=== PATIENT | male | born 1980 | race Caucasian/White ===

== ENCOUNTER 2023-01-26 21:30 | Emergency (ER) | payer MEDICAID ==
[~2023-01-26] VITALS: Ht 175.3 cm; Wt 82.6 kg
--- NOTE | 2023-01-26 22:24 | NUR ---
Called no show in lobby or outside.
[2023-01-26 23:00] VITALS: BP 151/100
== END 2023-01-27 02:26 | disposition left against medical advice (07) ==
LOC: MED 21:30
DX: J02.9 Acute pharyngitis, unspecified (principal); Z53.21 Procedure and treatment not carried out due to patient leaving prior to being seen by health care provider
CPT/HCPCS: 99281

== ENCOUNTER 2023-07-18 23:05 | Emergency (ER) | payer MEDICAID ==
[~2023-07-18] VITALS: Ht 175.3 cm; Wt 61.2 kg
[2023-07-18 23:10] VITALS: BP 120/69; PULSE 90; RESP 17; TEMP 98; O2SAT 98
[2023-07-19] MEDS ORDERED: cephALEXin 500 MG CAP PO ONE (01:15)
[2023-07-19] MEDS ORDERED: HYDROcodone/APAP 5/325 MG 1 TAB TAB PO ONE (01:15)
[2023-07-19] MEDS ORDERED: LIDOCAINE/EPI MPF 1%1:200000 30 ML VIAL INJ ONE (01:15)
[2023-07-19] MEDS ORDERED: SULF-59 PO (02:51)
[2023-07-19] MEDS ORDERED: ACET-10509 PO (02:51)
[2023-07-19] MEDS ORDERED: CEPH-588 PO (02:51)
== END 2023-07-19 07:00 | disposition home or self-care (01) ==
LOC: MED 23:05
DX: L02.414 Cutaneous abscess of left upper limb (principal); Z79.899 Other long term (current) drug therapy
CPT/HCPCS: 10060; 99283; J2001